=== PATIENT | female | born 1970 | race Two or more races ===

== ENCOUNTER 2017-02-20 09:10 | Emergency (ER) | payer OTHER ==
[~2017-02-20] VITALS: Ht 160 cm; Wt 110.9 kg
[2017-02-20] MEDS ORDERED: MULT1CHW39 PO (09:24)
[2017-02-20] MEDS ORDERED: DEXT30SUSP PO (09:24)
[2017-02-20] MEDS ORDERED: LORazepam 2 MG/ML VIAL (J2060) IV STA (09:32)
[2017-02-20 10:06] LABS: BASO % 0.3 % (0.0-1.0); EOS # 0.1 K/mm3 (0.0-0.50); EOS % 0.6 % (0.0-3.0); LARGE UNSTAINED CELL # 0.2 K/mm3 (0.0-0.4); LARGE UNSTAINED CELL % 2.2 % (0.0-4.0); LYMPH # 1.2 K/mm3 (1.5-4.5); LYMPH % 11.8 % (24.0-44.0); MEAN CORPUSCULAR HEMOGLOBIN 20.9 pg (27.0-33.0); MEAN CORPUSCULAR HGB CONC 31.3 g/dl (32.0-36.5); MONO # 0.5 K/mm3 (0.0-0.8); MONO % 4.8 % (0.0-5.0); NEUTROPHILS # 8.4 K/mm3 (1.8-7.7); NEUTROPHILS % 80.3 % (36.0-66.0); PLATELET COUNT, AUTOMATED 349 k/mm3 (150-450); RED CELL DISTRIBUTION WIDTH 16.8 % (11.5-14.5); WHITE BLOOD COUNT 10.5 K/mm3 (4.0-10.0)
[2017-02-20 10:13] LABS: INR 1.03
[2017-02-20 10:20] LABS: ADD MORPHOLOGY? YES
[2017-02-20 10:35] LABS: ALBUMIN 3.6 GM/DL (3.2-5.2); ALBUMIN/GLOBULIN RATIO 0.78 (1.00-1.93); ALKALINE PHOSPHATASE 104 U/L (45-117); ALT/SGPT 22 U/L (12-78); ANION GAP 10 MEQ/L (8-16); AST/SGOT 12 U/L (15-37); BILIRUBIN,DIRECT < 0.1 MG/DL (0.0-0.2); BILIRUBIN,TOTAL 0.6 MG/DL (0.2-1.0); BLOOD UREA NITROGEN 10 MG/DL (7-18); CALCIUM LEVEL 8.8 MG/DL (8.5-10.1); CARBON DIOXIDE LEVEL 21 MEQ/L (21-32); CHLORIDE LEVEL 105 MEQ/L (98-107); CREATININE FOR GFR 0.83 MG/DL (0.55-1.02); GLOMERULAR FILTRATION RATE > 60.0 (>58); GLUCOSE, FASTING 124 MG/DL (70-105); POTASSIUM SERUM 3.4 MEQ/L (3.5-5.1); SODIUM LEVEL 136 MEQ/L (136-145); TOTAL PROTEIN 8.2 GM/DL (6.4-8.2)
[2017-02-20 10:36] LABS: ANISOCYTOSIS 2+; MICROCYTOSIS 2+
[2017-02-20 10:37] LABS: HYPOCHROMASIA 1+
[2017-02-20] MEDS ORDERED: ISOVUE-370 76% 100ML VIAL (Q9967) As Ordered ONE (10:51)
[2017-02-20 11:41] VITALS: BP 155/86
--- NOTE | 2017-02-20 11:43 | REP ---
CT ANGIO CHEST: HISTORY: Chest pain. CONTRAST: Isovue 370, 75 mL. There are no filling defects in the main, right and left pulmonary arteries. There are no definite filling defects in the distal pulmonary arteries, however , they are not well seen. The lungs are clear. There is no pleural effusion. There is no mediastinal mass. The heart is normal in size. IMPRESSION: Limited examination with no definite pulmonary embolism. Signed by Humble Lara MD 02/20/2017 11:45 A
--- NOTE | 2017-02-20 16:50 | REP ---
Chest x-ray: Two views. History: Dyspnea and cough . Comparison study: No comparison . Findings: The lungs are well inflated and free of infiltrate. The pleural angles are sharp. The heart size is normal. Pulmonary vasculature is not increased. No significant bony abnormality is seen. Impression: Negative chest x-ray. Signed by Joni Prasad MD 02/20/2017 10:06 A
--- NOTE | 2017-02-20 21:50 | ECGEPIP ---
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
== END 2017-02-20 11:53 | disposition home or self-care (01) ==
LOC: M ED 09:10
DX: R06.02 Shortness of breath (principal); R07.89 Other chest pain; E66.9 Obesity, unspecified; Z88.5 Allergy status to narcotic agent
CPT/HCPCS: 71020; 71275; 80048; 80076; 82550; 82553; 83880; 85025; 85379; 85610; 93005; 93041; 96374; 99284; J2060; Q9967

== ENCOUNTER → 2017-03-04 | Outpatient (REF) | payer OTHER ==
[~2017-03-04] MED LIST: DEXT30SUSP PO; MULT1CHW39 PO
[2017-03-04 13:00] LABS: MEAN CORPUSCULAR HEMOGLOBIN 21.1 pg (27.0-33.0); MEAN CORPUSCULAR HGB CONC 30.4 g/dl (32.0-36.5); MEAN CORPUSCULAR VOLUME 69.3 fl (80.0-96.0); RED CELL DISTRIBUTION WIDTH 17.3 % (11.5-14.5); WHITE BLOOD COUNT 7.6 K/mm3 (4.0-10.0)
[2017-03-04 13:26] LABS: FREE T4 1.13 NG/DL (0.76-1.46)
== END ==
LOC: M SFHCLERA 09:05
PROVIDERS: ATTEND Family Medicine
DX: D64.9 Anemia, unspecified (principal); R06.83 Snoring; E66.9 Obesity, unspecified; R53.83 Other fatigue

== ENCOUNTER → 2017-05-17 | Outpatient (REF) | payer OTHER ==
[2017-05-17 11:57] LABS: MEAN CORPUSCULAR HEMOGLOBIN 26.5 pg (27.0-33.0); MEAN CORPUSCULAR HGB CONC 32.6 g/dl (32.0-36.5); MEAN CORPUSCULAR VOLUME 81.3 fl (80.0-96.0); RED CELL DISTRIBUTION WIDTH 18.1 % (11.5-14.5)
[2017-05-17 12:30] LABS: FERRITIN 28 NG/ML (8-252)
== END ==
LOC: M SFHCLERA 08:25
PROVIDERS: ATTEND Family Medicine
DX: Z79.899 Other long term (current) drug therapy (principal)

== ENCOUNTER 2021-08-31 18:26 | Inpatient (IN) | payer OTHER ==
[~2021-08-31] VITALS: Ht 160 cm; Wt 111.0 kg
[~2021-08-31 18:26] MED LIST changes: -MULT1CHW39 PO; +MULT200T7 PO
[2021-08-31] MEDS ORDERED: FERR325T81 PO (18:37)
[2021-08-31 22:06] LABS: BASO % 0.2 % (0.0-1.0); EOS % 0.2 % (0.0-3.0); HEMATOCRIT 40.7 % (36.0-47.0); HEMOGLOBIN 12.8 g/dl (12.0-15.5); LYMPH # 0.9 10^3/uL (1.5-5.0); LYMPH % 4.8 % (24.0-44.0); MEAN CORPUSCULAR HEMOGLOBIN 22.8 pg (27.0-33.0); MEAN CORPUSCULAR HGB CONC 31.4 g/dl (32.0-36.5); MEAN CORPUSCULAR VOLUME 72.4 fl (80.0-96.0); MONO # 1.2 10^3/uL (0.0-0.8); MONO % 6.4 % (2.0-8.0); PLATELET COUNT, AUTOMATED 568 10^3/uL (150-450); RED BLOOD COUNT 5.62 10^6/uL (4.00-5.40); WHITE BLOOD COUNT 19.3 10^3/uL (4.0-10.0)
[2021-08-31 22:45] LABS: ALBUMIN 3.7 GM/DL (3.2-5.2); BILIRUBIN,DIRECT 0.1 MG/DL (0.0-0.2); BILIRUBIN,TOTAL 0.4 MG/DL (0.2-1.0); CALCIUM LEVEL 9.8 MG/DL (8.5-10.1); CREATININE FOR GFR 1.38 MG/DL (0.55-1.30); GLOMERULAR FILTRATION RATE 42.7 (>51); POTASSIUM SERUM 4.1 MEQ/L (3.5-5.1); TOTAL PROTEIN 8.2 GM/DL (6.4-8.2)
[2021-08-31] MEDS ORDERED: NS 1,000 ML IV ONE (23:10)
[2021-08-31] MEDS ORDERED: ISOVUE-370 76% 100ML VIAL As Ordered ONE (23:38)
[2021-09-01] MEDS ORDERED: CIPROFLOXACIN 400 MG in IV 1 EA IV ONE (00:35)
[2021-09-01] MEDS ORDERED: metroNIDAZOLE 500 MG in IV 1 EA IV ONE (00:35)
[2021-09-01] MEDS ORDERED: NS 1,000 ML IV ONE (01:00)
[2021-09-01] MEDS ORDERED: KETOROLAC 30 MG/ML 1ML VIAL IV PRN (01:05)
[2021-09-01] MEDS ORDERED: ONDANSETRON 4MG/2ML VIAL IV ONE (01:35)
[2021-09-01] MEDS ORDERED: MULTCHW12 PO (01:54)
[2021-09-01] MEDS ORDERED: HOME MED LIST COMPLETE! XX SCH (01:55)
[2021-09-01 04:08] VITALS: BP 157/85
[2021-09-01] MEDS: NS 1,000 ML IV SCH ×4 (04:36→19:37)
[2021-09-01 05:29] VITALS: BP 151/88
[2021-09-01] MEDS: metroNIDAZOLE 500 MG in IV 1 EA IV SCH ×3 (06:24→18:24)
[2021-09-01] MEDS: SENOKOT S TAB PO SCH ×2 (10:15→20:38)
[2021-09-01] MEDS: ENOXAPARIN 40MG/0.4ML SYRINGE (J1650 PER 10MG) SC SCH (10:16)
[2021-09-01] MEDS: PANTOPRAZOLE 40MG VIAL (C9113 PER 1) IV SCH (10:16)
[2021-09-01 12:46] LABS: HEMATOCRIT 35.5 % (36.0-47.0); MEAN CORPUSCULAR HEMOGLOBIN 22.5 pg (27.0-33.0); MEAN CORPUSCULAR HGB CONC 30.1 g/dl (32.0-36.5); MEAN CORPUSCULAR VOLUME 74.6 fl (80.0-96.0); RED BLOOD COUNT 4.76 10^6/uL (4.00-5.40); WHITE BLOOD COUNT 15.4 10^3/uL (4.0-10.0)
[2021-09-01 12:55] LABS: HEMOGLOBIN 10.7 g/dl (12.0-15.5); PLATELET COUNT, AUTOMATED 441 10^3/uL (150-450)
[2021-09-01 13:02] LABS: BLOOD UREA NITROGEN 31 MG/DL (7-18); CALCIUM LEVEL 8.8 MG/DL (8.5-10.1); CARBON DIOXIDE LEVEL 27 MEQ/L (21-32); CHLORIDE LEVEL 104 MEQ/L (98-107); CREATININE FOR GFR 1.01 MG/DL (0.55-1.30); GLOMERULAR FILTRATION RATE > 60.0 (>51); GLUCOSE, FASTING 122 MG/DL (70-100); POTASSIUM SERUM 3.2 MEQ/L (3.5-5.1); SODIUM LEVEL 137 MEQ/L (136-145)
[2021-09-01 14:00] VITALS: BP 158/92
[2021-09-01] MEDS: CIPROFLOXACIN 400 MG in IV 1 EA IV SCH (16:28)
[2021-09-01 22:00] VITALS: BP 155/83
[2021-09-02] MEDS: metroNIDAZOLE 500 MG in IV 1 EA IV SCH ×5 (00:45→23:29)
[2021-09-02] MEDS: NS 1,000 ML IV SCH ×3 (02:17→17:12)
[2021-09-02] MEDS: CIPROFLOXACIN 400 MG in IV 1 EA IV SCH ×2 (03:53→15:38)
[2021-09-02 06:22] VITALS: BP 150/82
[2021-09-02 07:33] LABS: HEMATOCRIT 32.5 % (36.0-47.0); HEMOGLOBIN 9.9 g/dl (12.0-15.5); MEAN CORPUSCULAR HEMOGLOBIN 22.6 pg (27.0-33.0); MEAN CORPUSCULAR HGB CONC 30.5 g/dl (32.0-36.5); PLATELET COUNT, AUTOMATED 352 10^3/uL (150-450); RED BLOOD COUNT 4.39 10^6/uL (4.00-5.40); WHITE BLOOD COUNT 8.1 10^3/uL (4.0-10.0)
[2021-09-02 07:53] LABS: BLOOD UREA NITROGEN 21 MG/DL (7-18); CARBON DIOXIDE LEVEL 28 MEQ/L (21-32); CHLORIDE LEVEL 106 MEQ/L (98-107); CREATININE FOR GFR 0.82 MG/DL (0.55-1.30); GLOMERULAR FILTRATION RATE > 60.0 (>51); GLUCOSE, FASTING 110 MG/DL (70-100); POTASSIUM SERUM 3.2 MEQ/L (3.5-5.1); SODIUM LEVEL 138 MEQ/L (136-145)
[2021-09-02] MEDS: SENOKOT S TAB PO SCH ×2 (09:48→20:37)
[2021-09-02] MEDS: PANTOPRAZOLE 40MG VIAL (C9113 PER 1) IV SCH (09:49)
[2021-09-02] MEDS: ENOXAPARIN 40MG/0.4ML SYRINGE (J1650 PER 10MG) SC SCH (09:49)
[2021-09-02 14:00] VITALS: BP 180/93
[2021-09-02] MEDS: ONDANSETRON 4MG/2ML VIAL IV PRN (15:38)
[2021-09-02] MEDS: POTASSIUM CHLORIDE INJ 40 MEQ in LR 1,000 ML IV SCH (21:46)
[2021-09-02 22:00] VITALS: BP 160/90
[2021-09-03] MEDS: CIPROFLOXACIN 400 MG in IV 1 EA IV SCH ×2 (03:59→16:56)
[2021-09-03] MEDS: metroNIDAZOLE 500 MG in IV 1 EA IV SCH ×3 (05:07→16:55)
[2021-09-03 06:00] VITALS: BP 168/93
[2021-09-03 08:13] LABS: HEMATOCRIT 33.3 % (36.0-47.0); MEAN CORPUSCULAR HEMOGLOBIN 22.3 pg (27.0-33.0); MEAN CORPUSCULAR VOLUME 74.2 fl (80.0-96.0); PLATELET COUNT, AUTOMATED 366 10^3/uL (150-450); RED BLOOD COUNT 4.49 10^6/uL (4.00-5.40); WHITE BLOOD COUNT 8.2 10^3/uL (4.0-10.0)
[2021-09-03 08:42] LABS: BLOOD UREA NITROGEN 14 MG/DL (7-18); CREATININE FOR GFR 0.69 MG/DL (0.55-1.30); GLUCOSE, FASTING 118 MG/DL (70-100)
[2021-09-03 08:43] LABS: CALCIUM LEVEL 8.4 MG/DL (8.5-10.1); CARBON DIOXIDE LEVEL 25 MEQ/L (21-32); CHLORIDE LEVEL 108 MEQ/L (98-107); GLOMERULAR FILTRATION RATE > 60.0 (>51); POTASSIUM SERUM 3.3 MEQ/L (3.5-5.1); SODIUM LEVEL 138 MEQ/L (136-145)
[2021-09-03] MEDS: SENOKOT S TAB PO SCH (09:13)
[2021-09-03] MEDS: PANTOPRAZOLE 40MG VIAL (C9113 PER 1) IV SCH (09:13)
[2021-09-03] MEDS: ENOXAPARIN 40MG/0.4ML SYRINGE (J1650 PER 10MG) SC SCH (09:13)
[2021-09-03] MEDS: POTASSIUM CHLORIDE INJ 40 MEQ in LR 1,000 ML IV SCH (09:13)
[2021-09-03 14:46] VITALS: BP 168/92
[2021-09-03] MEDS ORDERED: FAT EMULSION IV 20% 500 ML IV SCH (18:00)
[2021-09-03] MEDS: AMINO AC/ELECTROLYTE/DEX/CALC 1,000 ML IV SCH (19:36)
[2021-09-03 22:00] VITALS: BP 172/89
[2021-09-04] MEDS: metroNIDAZOLE 500 MG in IV 1 EA IV SCH ×5 (00:24→23:26)
[2021-09-04] MEDS: CIPROFLOXACIN 400 MG in IV 1 EA IV SCH ×2 (04:00→16:27)
[2021-09-04] MEDS: AMINO AC/ELECTROLYTE/DEX/CALC 1,000 ML IV SCH ×3 (04:05→17:22)
[2021-09-04 06:00] VITALS: BP 171/89
[2021-09-04 07:11] LABS: BASO # 0.1 10^3/uL (0.0-0.2); BASO % 0.6 % (0.0-1.0); EOS % 0.5 % (0.0-3.0); HEMOGLOBIN 10.3 g/dl (12.0-15.5); LYMPH # 0.8 10^3/uL (1.5-5.0); LYMPH % 9.6 % (24.0-44.0); MEAN CORPUSCULAR HEMOGLOBIN 22.3 pg (27.0-33.0); MEAN CORPUSCULAR HGB CONC 30.3 g/dl (32.0-36.5); MEAN CORPUSCULAR VOLUME 73.8 fl (80.0-96.0); MONO # 0.8 10^3/uL (0.0-0.8); NEUTROPHILS # 6.3 10^3/uL (1.5-8.5); PLATELET COUNT, AUTOMATED 365 10^3/uL (150-450); RED BLOOD COUNT 4.61 10^6/uL (4.00-5.40)
[2021-09-04 07:45] LABS: ALBUMIN 3.1 GM/DL (3.2-5.2); ALT/SGPT 23 U/L (12-78); BILIRUBIN,TOTAL 0.2 MG/DL (0.2-1.0); BLOOD UREA NITROGEN 10 MG/DL (7-18); CALCIUM LEVEL 8.6 MG/DL (8.5-10.1); CARBON DIOXIDE LEVEL 28 MEQ/L (21-32); CHLORIDE LEVEL 103 MEQ/L (98-107); CREATININE FOR GFR 0.63 MG/DL (0.55-1.30); GLOMERULAR FILTRATION RATE > 60.0 (>51); GLUCOSE, FASTING 134 MG/DL (70-100); POTASSIUM SERUM 3.2 MEQ/L (3.5-5.1); SODIUM LEVEL 137 MEQ/L (136-145); TOTAL PROTEIN 6.7 GM/DL (6.4-8.2)
[2021-09-04] MEDS: ENOXAPARIN 40MG/0.4ML SYRINGE (J1650 PER 10MG) SC SCH (07:52)
[2021-09-04] MEDS: PANTOPRAZOLE 40MG VIAL (C9113 PER 1) IV SCH (07:52)
[2021-09-04] MEDS ORDERED: LIQUID POLIBAR PLUS 105% w/v 750ML BTL As Ordered ONE (13:34)
[2021-09-04 14:00] VITALS: BP 168/90
[2021-09-04] MEDS ORDERED: FAT EMULSION IV 20% 500 ML IV SCH (18:00)
[2021-09-04 21:18] VITALS: BP 164/88
[2021-09-05] MEDS: CIPROFLOXACIN 400 MG in IV 1 EA IV SCH ×2 (04:47→16:05)
[2021-09-05 06:00] VITALS: BP 156/86
[2021-09-05] MEDS: metroNIDAZOLE 500 MG in IV 1 EA IV SCH ×4 (06:00→23:39)
[2021-09-05 06:24] LABS: HEMATOCRIT 32.3 % (36.0-47.0); HEMOGLOBIN 10.1 g/dl (12.0-15.5); MEAN CORPUSCULAR HEMOGLOBIN 22.6 pg (27.0-33.0); MEAN CORPUSCULAR HGB CONC 31.3 g/dl (32.0-36.5); MEAN CORPUSCULAR VOLUME 72.4 fl (80.0-96.0); PLATELET COUNT, AUTOMATED 332 10^3/uL (150-450); RED BLOOD COUNT 4.46 10^6/uL (4.00-5.40); WHITE BLOOD COUNT 7.3 10^3/uL (4.0-10.0)
[2021-09-05] MEDS: AMINO AC/ELECTROLYTE/DEX/CALC 1,000 ML IV SCH ×2 (06:50→20:54)
[2021-09-05 06:58] LABS: BLOOD UREA NITROGEN 9 MG/DL (7-18); CREATININE FOR GFR 0.63 MG/DL (0.55-1.30); GLUCOSE, FASTING 159 MG/DL (70-100)
[2021-09-05 06:59] LABS: CALCIUM LEVEL 8.4 MG/DL (8.5-10.1); CARBON DIOXIDE LEVEL 26 MEQ/L (21-32); CHLORIDE LEVEL 102 MEQ/L (98-107); GLOMERULAR FILTRATION RATE > 60.0 (>51); SODIUM LEVEL 136 MEQ/L (136-145)
[2021-09-05] MEDS: ENOXAPARIN 40MG/0.4ML SYRINGE (J1650 PER 10MG) SC SCH (09:27)
[2021-09-05] MEDS: PANTOPRAZOLE 40MG VIAL (C9113 PER 1) IV SCH (09:27)
[2021-09-05] MEDS: KCL 10MEQ/100ML SWI (KRUN) 10 MEQ in IV 1 EA IV SCH ×4 (09:28→15:07)
[2021-09-05] MEDS ORDERED: MAGNESIUM CITRATE 300 ML BTL PO ONE (12:25)
[2021-09-05 13:25] VITALS: BP 154/88
[2021-09-05] MEDS ORDERED: FAT EMULSION IV 20% 500 ML IV SCH (18:00)
[2021-09-05 22:00] VITALS: BP 149/91
[2021-09-06] MEDS: CIPROFLOXACIN 400 MG in IV 1 EA IV SCH ×2 (03:43→17:06)
[2021-09-06] MEDS: metroNIDAZOLE 500 MG in IV 1 EA IV SCH ×3 (05:10→17:55)
[2021-09-06 05:17] LABS: HEMOGLOBIN 11.2 g/dl (12.0-15.5); MEAN CORPUSCULAR HEMOGLOBIN 22.8 pg (27.0-33.0); MEAN CORPUSCULAR HGB CONC 31.1 g/dl (32.0-36.5); MEAN CORPUSCULAR VOLUME 73.2 fl (80.0-96.0); PLATELET COUNT, AUTOMATED 380 10^3/uL (150-450); RED BLOOD COUNT 4.92 10^6/uL (4.00-5.40); WHITE BLOOD COUNT 8.2 10^3/uL (4.0-10.0)
[2021-09-06 05:53] LABS: BLOOD UREA NITROGEN 11 MG/DL (7-18); CALCIUM LEVEL 8.5 MG/DL (8.5-10.1); CARBON DIOXIDE LEVEL 26 MEQ/L (21-32); CHLORIDE LEVEL 102 MEQ/L (98-107); CREATININE FOR GFR 0.78 MG/DL (0.55-1.30); GLOMERULAR FILTRATION RATE > 60.0 (>51); GLUCOSE, FASTING 157 MG/DL (70-100); SODIUM LEVEL 136 MEQ/L (136-145)
[2021-09-06 06:00] VITALS: BP 146/90
[2021-09-06] MEDS ORDERED: MAGNESIUM CITRATE 300 ML BTL PO ONE (07:50)
[2021-09-06] MEDS: PANTOPRAZOLE 40MG VIAL (C9113 PER 1) IV SCH (09:17)
[2021-09-06] MEDS: ENOXAPARIN 40MG/0.4ML SYRINGE (J1650 PER 10MG) SC SCH (09:17)
[2021-09-06] MEDS: KCL 10MEQ/100ML SWI (KRUN) 10 MEQ in IV 1 EA IV SCH ×5 (09:17→13:56)
[2021-09-06] MEDS: AMINO AC/ELECTROLYTE/DEX/CALC 1,000 ML IV SCH ×2 (09:33→21:53)
[2021-09-06 14:00] VITALS: BP 151/84
[2021-09-06] MEDS: HumaLOG INSULIN (NovoLOG) PER UNIT SC SCH (17:54)
[2021-09-06] MEDS ORDERED: FAT EMULSION IV 20% 500 ML IV SCH (18:00)
[2021-09-06 22:00] VITALS: BP 150/84
[2021-09-07] VITALS (7 sets, daily range): BP systolic 90–150; BP diastolic 72–90
[2021-09-07] MEDS: metroNIDAZOLE 500 MG in IV 1 EA IV SCH ×6 (00:17→23:24)
[2021-09-07] MEDS: CIPROFLOXACIN 400 MG in IV 1 EA IV SCH ×2 (03:12→16:25)
[2021-09-07 04:19] LABS: RSV AMPLIFICATION NEGATIVE (NEGATIVE)
[2021-09-07 04:35] LABS: HEMATOCRIT 32.8 % (36.0-47.0); MEAN CORPUSCULAR HEMOGLOBIN 22.1 pg (27.0-33.0); MEAN CORPUSCULAR HGB CONC 30.5 g/dl (32.0-36.5); MEAN CORPUSCULAR VOLUME 72.6 fl (80.0-96.0); PLATELET COUNT, AUTOMATED 357 10^3/uL (150-450); RED BLOOD COUNT 4.52 10^6/uL (4.00-5.40); WHITE BLOOD COUNT 7.8 10^3/uL (4.0-10.0)
[2021-09-07 04:55] LABS: BLOOD UREA NITROGEN 10 MG/DL (7-18); CARBON DIOXIDE LEVEL 28 MEQ/L (21-32); CHLORIDE LEVEL 105 MEQ/L (98-107); CREATININE FOR GFR 0.62 MG/DL (0.55-1.30); GLOMERULAR FILTRATION RATE > 60.0 (>51); GLUCOSE, FASTING 132 MG/DL (70-100); SODIUM LEVEL 138 MEQ/L (136-145)
[2021-09-07] MEDS: HumaLOG INSULIN (NovoLOG) PER UNIT SC SCH ×5 (05:30→23:29)
[2021-09-07] MEDS: ENOXAPARIN 40MG/0.4ML SYRINGE (J1650 PER 10MG) SC SCH (07:42)
[2021-09-07] MEDS: PANTOPRAZOLE 40MG VIAL (C9113 PER 1) IV SCH (07:42)
[2021-09-07] MEDS: KCL 10MEQ/100ML SWI (KRUN) 10 MEQ in IV 1 EA IV SCH ×8 (08:46→21:48)
[2021-09-07] MEDS: SENOKOT S TAB PO SCH ×2 (09:00→21:07)
[2021-09-07] MEDS ORDERED: BUPIVACAINE/EPIN 0.5% 30 ML VIAL As Ordered ONE (09:38)
[2021-09-07] MEDS ORDERED: ONDANSETRON 4MG/2ML VIAL As Ordered ONE (09:47)
[2021-09-07] MEDS ORDERED: LIDOCAINE 2% 100MG/5ML SDV (FOR ANES.) As Ordered ONE (09:47)
[2021-09-07] MEDS ORDERED: HYDROmorphone HCL 2MG/ML 1ML VIAL As Ordered ONE (09:47)
[2021-09-07] MEDS ORDERED: dexameTHASONE 4 MG/ML 1ML VIAL (J1100 PER 1MG) As Ordered ONE (09:47)
[2021-09-07] MEDS ORDERED: ROCURONIUM BROMIDE 50 MG/5 ML VIAL As Ordered ONE ×3 (09:47→12:06)
[2021-09-07] MEDS ORDERED: fentaNYL 100 MCG/2 ML INJECTION As Ordered ONE (09:47)
[2021-09-07] MEDS ORDERED: MIDAZOLAM INJ 2MG/2ML VIAL (J2250 PER 1MG) As Ordered ONE (09:47)
[2021-09-07] MEDS ORDERED: propofoL 200 MG/20 ML VIAL As Ordered ONE ×2 (09:49→13:48)
[2021-09-07] MEDS ORDERED: ACETAMINOPHEN 1000MG 100ML IV BTL (OFIRMEV) (J0131 PER 10MG) As Ordered ONE (10:51)
[2021-09-07] MEDS ORDERED: PHENYLephrine 500MCG 5ML (100MCG/ML) SYRINGE As Ordered ONE (10:53)
[2021-09-07] MEDS ORDERED: ePHEDrine SULFATE 25 MG/5 ML(5MG/ML) SYRINGE As Ordered ONE (10:58)
[2021-09-07] MEDS ORDERED: SUGAMMADEX SODIUM 500 MG/5 ML VIAL (BRIDION) As Ordered ONE (12:06)
[2021-09-07] MEDS ORDERED: KETOROLAC 60MG 2ML VIAL As Ordered ONE (13:28)
[2021-09-07] MEDS ORDERED: LR 1,000 ML IV SCH (14:30)
[2021-09-07] MEDS ORDERED: ONDANSETRON 4MG/2ML VIAL IV PRN (14:30)
[2021-09-07] MEDS ORDERED: MORPHINE 2 MG/ML 1ML VIAL (J2270) IV PRN (14:30)
[2021-09-07] MEDS: ONDANSETRON 4MG/2ML VIAL IV PRN (14:40)
[2021-09-07] MEDS: fentaNYL 100 MCG/2 ML INJECTION IV PRN ×4 (14:41→14:59)
[2021-09-07] MEDS: AMINO AC/ELECTROLYTE/DEX/CALC 1,000 ML IV SCH ×2 (16:23→23:11)
[2021-09-07] MEDS ORDERED: FAT EMULSION IV 20% 500 ML IV SCH (18:00)
[2021-09-07] MEDS: MORPHINE 2 MG/ML 1ML VIAL (J2270) IV PRN ×2 (18:47→23:23)
[2021-09-08 02:00] VITALS: BP 118/64
[2021-09-08] MEDS: CIPROFLOXACIN 400 MG in IV 1 EA IV SCH ×2 (03:37→15:12)
[2021-09-08] MEDS: MORPHINE 2 MG/ML 1ML VIAL (J2270) IV PRN ×5 (03:38→21:46)
[2021-09-08] MEDS: metroNIDAZOLE 500 MG in IV 1 EA IV SCH ×4 (04:59→23:25)
[2021-09-08] MEDS: HumaLOG INSULIN (NovoLOG) PER UNIT SC SCH ×2 (06:19→11:29)
[2021-09-08 06:20] VITALS: BP 139/83
[2021-09-08] MEDS: SENOKOT S TAB PO SCH ×2 (08:35→21:45)
[2021-09-08] MEDS: ENOXAPARIN 40MG/0.4ML SYRINGE (J1650 PER 10MG) SC SCH (08:35)
[2021-09-08] MEDS: PANTOPRAZOLE 40MG VIAL (C9113 PER 1) IV SCH (08:35)
[2021-09-08 10:12] LABS: HEMATOCRIT 31.4 % (36.0-47.0); HEMOGLOBIN 9.5 g/dl (12.0-15.5); MEAN CORPUSCULAR HEMOGLOBIN 22.1 pg (27.0-33.0); MEAN CORPUSCULAR HGB CONC 30.3 g/dl (32.0-36.5); MEAN CORPUSCULAR VOLUME 73.2 fl (80.0-96.0); PLATELET COUNT, AUTOMATED 307 10^3/uL (150-450); RED BLOOD COUNT 4.29 10^6/uL (4.00-5.40); WHITE BLOOD COUNT 9.2 10^3/uL (4.0-10.0)
[2021-09-08 10:41] LABS: BLOOD UREA NITROGEN 5 MG/DL (7-18); CALCIUM LEVEL 7.7 MG/DL (8.5-10.1); CARBON DIOXIDE LEVEL 25 MEQ/L (21-32); CHLORIDE LEVEL 107 MEQ/L (98-107); CREATININE FOR GFR 0.51 MG/DL (0.55-1.30); GLOMERULAR FILTRATION RATE > 60.0 (>51); GLUCOSE, FASTING 142 MG/DL (70-100); POTASSIUM SERUM 3.4 MEQ/L (3.5-5.1); SODIUM LEVEL 138 MEQ/L (136-145)
[2021-09-08] MEDS: AMINO AC/ELECTROLYTE/DEX/CALC 1,000 ML IV SCH (11:29)
[2021-09-08 14:00] VITALS: BP 128/78
[2021-09-08 22:00] VITALS: BP 141/84
[2021-09-09] MEDS: CIPROFLOXACIN 400 MG in IV 1 EA IV SCH ×2 (03:56→16:10)
[2021-09-09] MEDS: metroNIDAZOLE 500 MG in IV 1 EA IV SCH ×4 (05:58→23:30)
[2021-09-09 06:00] VITALS: BP 141/85
[2021-09-09] MEDS: KETOROLAC 30 MG/ML 1ML VIAL IV SCH ×4 (06:00→23:29)
[2021-09-09 06:45] LABS: HEMOGLOBIN 9.8 g/dl (12.0-15.5); MEAN CORPUSCULAR HEMOGLOBIN 22.3 pg (27.0-33.0); MEAN CORPUSCULAR HGB CONC 30.6 g/dl (32.0-36.5); MEAN CORPUSCULAR VOLUME 72.9 fl (80.0-96.0); PLATELET COUNT, AUTOMATED 305 10^3/uL (150-450); RED BLOOD COUNT 4.39 10^6/uL (4.00-5.40); WHITE BLOOD COUNT 9.5 10^3/uL (4.0-10.0)
[2021-09-09 06:52] LABS: BLOOD UREA NITROGEN 5 MG/DL (7-18); CARBON DIOXIDE LEVEL 26 MEQ/L (21-32); CHLORIDE LEVEL 105 MEQ/L (98-107); CREATININE FOR GFR 0.57 MG/DL (0.55-1.30); GLOMERULAR FILTRATION RATE > 60.0 (>51); GLUCOSE, FASTING 152 MG/DL (70-100); POTASSIUM SERUM 3.5 MEQ/L (3.5-5.1); SODIUM LEVEL 138 MEQ/L (136-145)
[2021-09-09] MEDS: ENOXAPARIN 40MG/0.4ML SYRINGE (J1650 PER 10MG) SC SCH (08:27)
[2021-09-09] MEDS: SENOKOT S TAB PO SCH ×2 (08:27→21:00)
[2021-09-09] MEDS: MORPHINE 2 MG/ML 1ML VIAL (J2270) IV PRN (08:28)
[2021-09-09] MEDS: PANTOPRAZOLE 40MG VIAL (C9113 PER 1) IV SCH (08:28)
[2021-09-09] MEDS ORDERED: PERCOCET 5MG/325MG TAB PO PRN (09:10)
[2021-09-09 14:00] VITALS: BP 138/85
[2021-09-09 20:00] VITALS: BP 145/86
[2021-09-09] MEDS: PERCOCET 5MG/325MG TAB PO PRN (21:10)
[2021-09-10] MEDS: CIPROFLOXACIN 400 MG in IV 1 EA IV SCH ×2 (03:04→16:22)
[2021-09-10] MEDS: KETOROLAC 30 MG/ML 1ML VIAL IV SCH ×4 (05:15→23:46)
[2021-09-10] MEDS: metroNIDAZOLE 500 MG in IV 1 EA IV SCH ×4 (05:16→23:46)
[2021-09-10 06:00] VITALS: BP 114/78
[2021-09-10 06:15] LABS: HEMATOCRIT 36.2 % (36.0-47.0); HEMOGLOBIN 10.9 g/dl (12.0-15.5); MEAN CORPUSCULAR HEMOGLOBIN 21.8 pg (27.0-33.0); MEAN CORPUSCULAR HGB CONC 30.1 g/dl (32.0-36.5); MEAN CORPUSCULAR VOLUME 72.3 fl (80.0-96.0); PLATELET COUNT, AUTOMATED 342 10^3/uL (150-450); RED BLOOD COUNT 5.01 10^6/uL (4.00-5.40); WHITE BLOOD COUNT 12.4 10^3/uL (4.0-10.0)
[2021-09-10 06:42] LABS: CALCIUM LEVEL 8.4 MG/DL (8.5-10.1); CREATININE FOR GFR 1.1 MG/DL (0.55-1.30); GLOMERULAR FILTRATION RATE 55.5 (>51); POTASSIUM SERUM 3.3 MEQ/L (3.5-5.1)
[2021-09-10] MEDS: ENOXAPARIN 40MG/0.4ML SYRINGE (J1650 PER 10MG) SC SCH (08:49)
[2021-09-10] MEDS: PANTOPRAZOLE 40MG VIAL (C9113 PER 1) IV SCH (08:49)
[2021-09-10] MEDS: SENOKOT S TAB PO SCH ×2 (08:50→20:19)
[2021-09-10] MEDS ORDERED: KCL 10MEQ/100ML SWI (KRUN) 10 MEQ in IV 1 EA IV ONE (11:00)
[2021-09-10] MEDS: ALVIMOPAN 12 MG CAPSULE (ENTEREG) PO SCH ×2 (11:49→20:20)
[2021-09-10] MEDS: SIMETHICONE 80MG CHEW TAB PO SCH ×4 (11:51→20:20)
[2021-09-10 14:00] VITALS: BP 132/86
[2021-09-10] MEDS: ONDANSETRON 4MG/2ML VIAL IV PRN (17:10)
[2021-09-10] MEDS ORDERED: NS 1,000 ML IV SCH (17:20)
[2021-09-10] MEDS: NS 1,000 ML IV SCH ×2 (17:41→23:46)
[2021-09-10 21:47] VITALS: BP 112/74
[2021-09-11] MEDS: CIPROFLOXACIN 400 MG in IV 1 EA IV SCH ×2 (03:04→16:43)
[2021-09-11] MEDS: KETOROLAC 30 MG/ML 1ML VIAL IV SCH ×4 (05:29→23:37)
[2021-09-11] MEDS: metroNIDAZOLE 500 MG in IV 1 EA IV SCH ×4 (05:30→23:37)
[2021-09-11 06:00] VITALS: BP 111/76
[2021-09-11 08:48] LABS: HEMATOCRIT 32.8 % (36.0-47.0); HEMOGLOBIN 10.2 g/dl (12.0-15.5); MEAN CORPUSCULAR HEMOGLOBIN 22.2 pg (27.0-33.0); MEAN CORPUSCULAR HGB CONC 31.1 g/dl (32.0-36.5); MEAN CORPUSCULAR VOLUME 71.3 fl (80.0-96.0); PLATELET COUNT, AUTOMATED 394 10^3/uL (150-450); WHITE BLOOD COUNT 13.8 10^3/uL (4.0-10.0)
[2021-09-11] MEDS: ENOXAPARIN 40MG/0.4ML SYRINGE (J1650 PER 10MG) SC SCH (08:50)
[2021-09-11] MEDS: PANTOPRAZOLE 40MG VIAL (C9113 PER 1) IV SCH (08:51)
[2021-09-11] MEDS: SIMETHICONE 80MG CHEW TAB PO SCH ×4 (08:51→21:15)
[2021-09-11] MEDS: SENOKOT S TAB PO SCH ×2 (08:51→21:15)
[2021-09-11] MEDS: ALVIMOPAN 12 MG CAPSULE (ENTEREG) PO SCH ×2 (08:51→21:15)
[2021-09-11 09:14] LABS: CALCIUM LEVEL 8.4 MG/DL (8.5-10.1); CREATININE FOR GFR 1.24 MG/DL (0.55-1.30); GLOMERULAR FILTRATION RATE 48.4 (>51); POTASSIUM SERUM 3.4 MEQ/L (3.5-5.1)
[2021-09-11] MEDS: NS 1,000 ML IV SCH ×3 (10:13→21:16)
[2021-09-11 14:00] VITALS: BP 127/80
[2021-09-11 20:21] VITALS: BP 134/77
[2021-09-12] MEDS: NS 1,000 ML IV SCH ×5 (03:25→22:22)
[2021-09-12] MEDS: CIPROFLOXACIN 400 MG in IV 1 EA IV SCH (03:25)
[2021-09-12 05:15] VITALS: BP 135/74
[2021-09-12] MEDS: KETOROLAC 30 MG/ML 1ML VIAL IV SCH ×4 (05:18→23:02)
[2021-09-12] MEDS: metroNIDAZOLE 500 MG in IV 1 EA IV SCH (05:18)
[2021-09-12 06:49] LABS: HEMOGLOBIN 9.8 g/dl (12.0-15.5); MEAN CORPUSCULAR HEMOGLOBIN 22.1 pg (27.0-33.0); MEAN CORPUSCULAR HGB CONC 30.6 g/dl (32.0-36.5); MEAN CORPUSCULAR VOLUME 72.1 fl (80.0-96.0); PLATELET COUNT, AUTOMATED 366 10^3/uL (150-450); RED BLOOD COUNT 4.44 10^6/uL (4.00-5.40); WHITE BLOOD COUNT 11.7 10^3/uL (4.0-10.0)
[2021-09-12 07:23] LABS: BLOOD UREA NITROGEN 36 MG/DL (7-18); CALCIUM LEVEL 8.2 MG/DL (8.5-10.1); CARBON DIOXIDE LEVEL 23 MEQ/L (21-32); CHLORIDE LEVEL 109 MEQ/L (98-107); CREATININE FOR GFR 0.94 MG/DL (0.55-1.30); GLOMERULAR FILTRATION RATE > 60.0 (>51); GLUCOSE, FASTING 124 MG/DL (70-100); SODIUM LEVEL 138 MEQ/L (136-145)
[2021-09-12] MEDS: SENOKOT S TAB PO SCH ×2 (08:48→21:07)
[2021-09-12] MEDS: ALVIMOPAN 12 MG CAPSULE (ENTEREG) PO SCH ×2 (08:49→21:07)
[2021-09-12] MEDS: PANTOPRAZOLE 40MG VIAL (C9113 PER 1) IV SCH (08:49)
[2021-09-12] MEDS: ENOXAPARIN 40MG/0.4ML SYRINGE (J1650 PER 10MG) SC SCH (08:49)
[2021-09-12] MEDS: SIMETHICONE 80MG CHEW TAB PO SCH ×4 (08:49→21:07)
[2021-09-12] MEDS: POTASSIUM CHLORIDE 10MEQ SR TABLET PO SCH (08:51)
[2021-09-12 12:00] VITALS: BP 145/65
[2021-09-12] MEDS: PERCOCET 5MG/325MG TAB PO PRN ×2 (16:20→22:23)
[2021-09-12 22:00] VITALS: BP 137/76
[2021-09-13 06:00] VITALS: BP 140/80
[2021-09-13] MEDS: KETOROLAC 30 MG/ML 1ML VIAL IV SCH (06:00)
[2021-09-13 06:10] LABS: HEMATOCRIT 33.7 % (36.0-47.0); HEMOGLOBIN 10.1 g/dl (12.0-15.5); MEAN CORPUSCULAR HEMOGLOBIN 21.9 pg (27.0-33.0); MEAN CORPUSCULAR VOLUME 73.1 fl (80.0-96.0); PLATELET COUNT, AUTOMATED 403 10^3/uL (150-450); RED BLOOD COUNT 4.61 10^6/uL (4.00-5.40); WHITE BLOOD COUNT 10.2 10^3/uL (4.0-10.0)
[2021-09-13 06:25] LABS: BLOOD UREA NITROGEN 21 MG/DL (7-18); CALCIUM LEVEL 8.2 MG/DL (8.5-10.1); CARBON DIOXIDE LEVEL 19 MEQ/L (21-32); CHLORIDE LEVEL 112 MEQ/L (98-107); CREATININE FOR GFR 0.62 MG/DL (0.55-1.30); GLOMERULAR FILTRATION RATE > 60.0 (>51); GLUCOSE, FASTING 128 MG/DL (70-100); POTASSIUM SERUM 3.5 MEQ/L (3.5-5.1); SODIUM LEVEL 138 MEQ/L (136-145)
[2021-09-13] MEDS: SIMETHICONE 80MG CHEW TAB PO SCH ×4 (08:56→20:35)
[2021-09-13] MEDS: ENOXAPARIN 40MG/0.4ML SYRINGE (J1650 PER 10MG) SC SCH (08:56)
[2021-09-13] MEDS: POTASSIUM CHLORIDE 10MEQ SR TABLET PO SCH (08:57)
[2021-09-13 14:00] VITALS: BP 150/86
[2021-09-13] MEDS ORDERED: IBUPROFEN 600MG TAB PO PRN (14:35)
[2021-09-13] MEDS ORDERED: PERCOCET PO (15:33)
[2021-09-13 20:38] VITALS: BP 125/81
[2021-09-13 20:58] LABS: AMORPHOUS SEDIMENT LARGE (NEGATIVE); APPEARANCE, URINE TURBID (CLEAR); BACTERIA, URINE AUTO NEGATIVE (NEGATIVE); BILIRUBIN, URINE AUTO NEGATIVE (NEGATIVE); BLOOD, URINE BLOOD NEGATIVE (NEGATIVE); COLOR, URINE YELLOW (YELLOW); GLUCOSE, URINE (UA) AUTO NEGATIVE (NEGATIVE); KETONE, URINE AUTO TRACE mg/dL (NEGATIVE); LEUKOCYTE ESTERASE, URINE AUTO 1+ (NEGATIVE); MUCUS, URINE LARGE (NEGATIVE); NITRITE, URINE AUTO NEGATIVE (NEGATIVE); PROTEIN, URINE AUTO 1+ mg/dL (NEGATIVE); RBC, URINE AUTO 0 /HPF (0-3); SPECIFIC GRAVITY URINE AUTO 1.027 (1.002-1.035); SQUAMOUS EPITHELIAL CELL UR AU 15 /HPF (0-6); UROBILINOGEN, URINE AUTO 0.2 mg/dL (0.0-2.0); WBC, URINE AUTO 5 /HPF (0-3)
[2021-09-13] MEDS ORDERED: PANTOPRAZOLE 40MG TAB (PROTONIX) PO SCH (21:00)
[2021-09-14 04:00] VITALS: BP 129/84
[2021-09-14] MEDS ORDERED: SUCRALFATE 1 GM TAB PO SCH (06:00)
[2021-09-14 06:56] LABS: HEMATOCRIT 33.6 % (36.0-47.0); HEMOGLOBIN 10.1 g/dl (12.0-15.5); MEAN CORPUSCULAR HEMOGLOBIN 21.7 pg (27.0-33.0); MEAN CORPUSCULAR HGB CONC 30.1 g/dl (32.0-36.5); MEAN CORPUSCULAR VOLUME 72.3 fl (80.0-96.0); PLATELET COUNT, AUTOMATED 390 10^3/uL (150-450); RED BLOOD COUNT 4.65 10^6/uL (4.00-5.40); WHITE BLOOD COUNT 10.2 10^3/uL (4.0-10.0)
[2021-09-14 07:25] LABS: BLOOD UREA NITROGEN 14 MG/DL (7-18); CALCIUM LEVEL 8.5 MG/DL (8.5-10.1); CARBON DIOXIDE LEVEL 22 MEQ/L (21-32); CHLORIDE LEVEL 109 MEQ/L (98-107); CREATININE FOR GFR 0.57 MG/DL (0.55-1.30); GLOMERULAR FILTRATION RATE > 60.0 (>51); GLUCOSE, FASTING 123 MG/DL (70-100); POTASSIUM SERUM 3.5 MEQ/L (3.5-5.1); SODIUM LEVEL 136 MEQ/L (136-145)
[2021-09-14] MEDS ORDERED: OMEP40CA4 PO (08:42)
[2021-09-14] MEDS: POTASSIUM CHLORIDE 10MEQ SR TABLET PO SCH (08:43)
[2021-09-14] MEDS: ENOXAPARIN 40MG/0.4ML SYRINGE (J1650 PER 10MG) SC SCH (08:43)
[2021-09-14] MEDS: SIMETHICONE 80MG CHEW TAB PO SCH (08:43)
[2021-09-14] MEDS ORDERED: CARA1TAB6 PO (08:43)
[2021-09-14] MEDS ORDERED: OMEPRAZOLE 20MG CAP PO ONE (08:45)
== END 2021-09-14 10:50 | disposition home or self-care (01) | DRG 346 ==
LOC: M ED 18:26 → M ED INP 09-01 01:02 → ENRESERV 09-01 02:33 → M MS5PR 09-01 04:20
PROVIDERS: ADMIT Surgery; ATTEND Surgery
PROC: 8E0W0CZ Robotic Assisted Procedure of Trunk Region, Open Approach (ICD-10-PCS; 2021-09-07)
PROC: 0DBL0ZX Excision of Transverse Colon, Open Approach, Diagnostic (ICD-10-PCS; principal; 2021-09-07 10:30)
DX: C18.4 Malignant neoplasm of transverse colon (principal); K76.0 Fatty (change of) liver, not elsewhere classified; K80.20 Calculus of gallbladder without cholecystitis without obstruction; D25.9 Leiomyoma of uterus, unspecified; Z88.5 Allergy status to narcotic agent; Z20.822 Contact with and (suspected) exposure to COVID-19; E87.6 Hypokalemia; Z53.31 Laparoscopic surgical procedure converted to open procedure; Z90.49 Acquired absence of other specified parts of digestive tract

== ENCOUNTER → 2021-10-13 | Outpatient (REF) | payer OTHER ==
[~2021-10-13] MED LIST changes: +CARA1TAB6 PO; +FERR325T81 PO; +MULTCHW12 PO; +NAPR220C14 PO; +OMEP40CA4 PO; +PERCOCET PO
== END ==
LOC: M SFHCADAM 08:10
PROVIDERS: ATTEND Family Medicine
DX: R73.9 Hyperglycemia, unspecified (principal)

== ENCOUNTER → 2021-10-23 | Outpatient (REF) | payer OTHER | LOC: M SFHCADAM 08:16 | PROVIDERS: ATTEND Family Medicine | DX: R73.9 Hyperglycemia, unspecified (principal) ==

== ENCOUNTER → 2022-08-27 | Outpatient (CLI) | payer OTHER ==
[~2022-08-27] MED LIST changes: +GASTROGRAFIN SOLUTION 30ML As Ordered ONE; +ISOVUE-370 76% 100ML VIAL As Ordered ONE
== END ==
LOC: M RAD 11:09
PROVIDERS: ATTEND Specialist
DX: C18.9 Malignant neoplasm of colon, unspecified (principal)

== ENCOUNTER → 2022-10-01 | Outpatient (CLI) | payer OTHER ==
[~2022-10-01] MED LIST changes: -GASTROGRAFIN SOLUTION 30ML As Ordered ONE; -ISOVUE-370 76% 100ML VIAL As Ordered ONE
[2022-10-01 11:04] LABS: CHOLESTEROL RISK RATIO 3.16 (<5); HDL CHOLESTEROL 46.5 MG/DL (>40); LDL CHOLESTEROL 81.5 MG/DL (<100)
== END ==
LOC: M LAB 09:46
PROVIDERS: ATTEND Family Medicine
DX: Z00.00 Encounter for general adult medical examination without abnormal findings (principal)

== ENCOUNTER → 2023-08-21 | Outpatient (CLI) | payer OTHER ==
[~2023-08-21] MED LIST changes: +GASTROGRAFIN SOLUTION 30ML As Ordered ONE; +ISOVUE-370 76% 100ML VIAL As Ordered ONE
== END ==
LOC: M RAD 07:25
PROVIDERS: ATTEND Specialist
DX: C18.9 Malignant neoplasm of colon, unspecified (principal); K80.20 Calculus of gallbladder without cholecystitis without obstruction; K42.9 Umbilical hernia without obstruction or gangrene
CPT/HCPCS: 71260; 74177; Q9963; Q9967

== ENCOUNTER → 2023-09-03 | Outpatient (CLI) | payer OTHER ==
[~2023-09-03] MED LIST changes: -GASTROGRAFIN SOLUTION 30ML As Ordered ONE; -ISOVUE-370 76% 100ML VIAL As Ordered ONE
== END ==
LOC: M RAD 14:49
PROVIDERS: ATTEND Nurse Practitioner
DX: E04.1 Nontoxic single thyroid nodule (principal)

== ENCOUNTER → 2023-09-13 | Outpatient (REF) | payer OTHER ==
[2023-09-13 13:30] LABS: BASO # 0.1 10^3/uL (0.0-0.2); BASO % 0.8 % (0.0-1.0); EOS % 0.4 % (0.0-3.0); HEMATOCRIT 44.8 % (36.0-47.0); HEMOGLOBIN 14.3 g/dl (12.0-15.5); LYMPH # 1.2 10^3/uL (1.5-5.0); LYMPH % 14.3 % (24.0-44.0); MEAN CORPUSCULAR HGB CONC 31.9 g/dl (32.0-36.5); MEAN CORPUSCULAR VOLUME 78.3 fl (80.0-96.0); MONO # 0.6 10^3/uL (0.0-0.8); MONO % 6.8 % (2.0-8.0); NEUTROPHILS # 6.6 10^3/uL (1.5-8.5); NEUTROPHILS % 77.5 % (36.0-66.0); PLATELET COUNT, AUTOMATED 279 10^3/uL (150-450); RED BLOOD COUNT 5.72 10^6/uL (4.00-5.40); WHITE BLOOD COUNT 8.6 10^3/uL (4.0-10.0)
[2023-09-13 13:38] LABS: ERYTHROCYTE SEDIMENTATION RATE 48 mm/hr (0-30)
[2023-09-13 13:56] LABS: C REACTIVE PROTEIN QUANTITATIV < 0.40 MG/DL (<1.0)
[2023-09-13 13:57] LABS: THYROXINE (T4) 11.6 UG/DL (4.5-10.9)
[2023-09-13 13:58] LABS: ALBUMIN 3.9 G/DL (3.2-5.2); ALKALINE PHOSPHATASE 102 U/L (46-116); ALT/SGPT 36 U/L (7.0-40); AST/SGOT 21 U/L (<34); BILIRUBIN,TOTAL 0.4 MG/DL (0.3-1.2); BLOOD UREA NITROGEN 14 MG/DL (9-23); CALCIUM LEVEL 9.4 MG/DL (8.5-10.1); CARBON DIOXIDE LEVEL 28 MMOL/L (20-31); CHLORIDE LEVEL 102 MMOL/L (98-107); FREE T4 1.17 NG/DL (0.89-1.76); GLOMERULAR FILTRATION RATE > 60.0 (>51); GLUCOSE, FASTING 106 MG/DL (60-100); POTASSIUM SERUM 4.2 MMOL/L (3.5-5.1); SODIUM LEVEL 139 MMOL/L (136-145); THYROID STIMULATING HORMONE 1.209 uIU/ML (0.55-4.78); TOTAL PROTEIN 7.7 G/DL (5.7-8.2)
[2023-09-13 14:02] LABS: THYROID PEROXIDASE ANTIBODY 576 U/ML (<60.0)
== END ==
LOC: M SFHCADAM 11:10
PROVIDERS: ATTEND Physician Assistant
DX: R13.19 Other dysphagia (principal); R60.9 Edema, unspecified; E04.2 Nontoxic multinodular goiter

== ENCOUNTER → 2023-09-17 | Outpatient (CLI) | payer OTHER ==
[~2023-09-17] MED LIST changes: +ISOVUE-370 76% 100ML VIAL As Ordered ONE
== END ==
LOC: M RAD 10:27
PROVIDERS: ATTEND Family Medicine
DX: E04.2 Nontoxic multinodular goiter (principal)
CPT/HCPCS: 70491; Q9967

== ENCOUNTER → 2023-09-27 | Outpatient (CLI) | payer OTHER ==
[~2023-09-27] MED LIST changes: -ISOVUE-370 76% 100ML VIAL As Ordered ONE; +LIDOCAINE 1% MDV 20ML VIAL As Ordered ONE
[2023-09-27 12:05] VITALS: TEMP 97.1
[2023-09-27 12:52] VITALS: BP 191/89; O2SAT 97
== END ==
LOC: M IRPRO 11:56
PROVIDERS: ATTEND Nurse Practitioner
DX: E04.1 Nontoxic single thyroid nodule (principal)

== ENCOUNTER → 2023-10-30 | Outpatient (CLI) | payer OTHER ==
[~2023-10-30] MED LIST changes: -LIDOCAINE 1% MDV 20ML VIAL As Ordered ONE
== END ==
LOC: M LAB 13:07
PROVIDERS: ATTEND Surgery
DX: E07.9 Disorder of thyroid, unspecified (principal)

== ENCOUNTER 2024-02-19 14:09 | Emergency (ER) | payer OTHER ==
[~2024-02-19] VITALS: Ht 162.6 cm; Wt 114.2 kg
[~2024-02-19 14:09] MED LIST changes: +K-PHTAB4 PO
[2024-02-19 15:56] LABS: BASO % 0.2 % (0.0-1.0); HEMATOCRIT 44.5 % (36.0-47.0); HEMOGLOBIN 15.2 g/dl (12.0-15.5); LYMPH # 0.8 10^3/uL (1.5-5.0); LYMPH % 6.5 % (24.0-44.0); MEAN CORPUSCULAR HGB CONC 34.2 g/dl (32.0-36.5); MEAN CORPUSCULAR VOLUME 84.9 fl (80.0-96.0); MONO # 1.2 10^3/uL (0.0-0.8); NEUTROPHILS # 10.1 10^3/uL (1.5-8.5); NEUTROPHILS % 82.8 % (36.0-66.0); PLATELET COUNT, AUTOMATED 182 10^3/uL (150-450); RED BLOOD COUNT 5.24 10^6/uL (4.00-5.40); WHITE BLOOD COUNT 12.2 10^3/uL (4.0-10.0)
[2024-02-19 16:14] LABS: ERYTHROCYTE SEDIMENTATION RATE 51 mm/hr (0-30)
[2024-02-19 16:28] LABS: BLOOD UREA NITROGEN 12 MG/DL (9-23); CALCIUM LEVEL 8.7 MG/DL (8.5-10.1); CARBON DIOXIDE LEVEL 28 MMOL/L (20-31); CHLORIDE LEVEL 102 MMOL/L (98-107); CREATININE FOR GFR 0.73 MG/DL (0.55-1.30); GLOMERULAR FILTRATION RATE > 60.0 (>51); GLUCOSE, FASTING 131 MG/DL (60-100); POTASSIUM SERUM 3.5 MMOL/L (3.5-5.1); SODIUM LEVEL 136 MMOL/L (136-145)
[2024-02-19 16:30] LABS: THYROID STIMULATING HORMONE 0.654 uIU/ML (0.55-4.78)
[2024-02-19] MEDS: KETOROLAC 30 MG/ML 1ML VIAL IV ONE (17:34)
[2024-02-19] MEDS: ACETAMINOPHEN 500 MG TAB PO ONE (17:49)
[2024-02-19 18:12] LABS: INR 1.27; PARTIAL THROMBOPLASTIN TIME 30.3 SECONDS (24.8-34.2); PROTHROMBIN TIME 15.5 SECONDS (12.5-14.5)
[2024-02-19] MEDS ORDERED: ISOVUE-370 76% 100ML VIAL As Ordered ONE (18:22)
[2024-02-19 18:48] LABS: CK-MB VALUE MASS < 1.0 NG/ML (<3.6)
[2024-02-19 18:50] LABS: CPK CREATINE PHOSPHOKINASE 37 U/L (34-145)
[2024-02-19] MEDS: cefTRIAXone SOD 1 GM in D5W MINI-BAG PLUS 50 ML IV ONE (19:28)
[2024-02-19] MEDS ORDERED: ONDA-282 PO (19:54)
[2024-02-19] MEDS ORDERED: SULF1TAB23 PO (19:54)
[2024-02-19 20:00] VITALS: BP 113/58; TEMP 98.9; O2SAT 97
[2024-02-23 17:02] LABS: LYME TOTAL ANTIBODY CIA <= 0.90 Index (<=0.90)
== END 2024-02-19 20:18 | disposition home or self-care (01) ==
LOC: M ED 14:09
DX: N10 Acute pyelonephritis (principal); R53.81 Other malaise; R91.1 Solitary pulmonary nodule; Z90.89 Acquired absence of other organs; Z91.030 Bee allergy status; Z88.5 Allergy status to narcotic agent; Z79.2 Long term (current) use of antibiotics; Z79.899 Other long term (current) drug therapy
CPT/HCPCS: 71046; 71275; 80048; 81001; 82550; 82553; 83605; 84439; 84443; 84484; 85025; 85610; 85652; 85730; 86140; 86618; 87040; 87077; 87088; 87186; 87486; 87581; 87633; 87798; 93005; 93041; 94760; 96365; 96375; 99285; J0696; J1885; Q9967

== ENCOUNTER → 2024-03-26 | Outpatient (CLI) | payer OTHER ==
[~2024-03-26] MED LIST changes: +ONDA-282 PO; +SULF1TAB23 PO
[2024-03-26 10:50] LABS: BASO # 0.1 10^3/uL (0.0-0.2); BASO % 0.7 % (0.0-1.0); EOS # 0.1 10^3/uL (0.0-0.5); HEMATOCRIT 45.3 % (36.0-47.0); HEMOGLOBIN 15.1 g/dl (12.0-15.5); LYMPH # 1.2 10^3/uL (1.5-5.0); LYMPH % 16.9 % (24.0-44.0); MEAN CORPUSCULAR HEMOGLOBIN 28.8 pg (27.0-33.0); MEAN CORPUSCULAR HGB CONC 33.3 g/dl (32.0-36.5); MEAN CORPUSCULAR VOLUME 86.5 fl (80.0-96.0); MONO # 0.6 10^3/uL (0.0-0.8); MONO % 8.2 % (2.0-8.0); NEUTROPHILS % 72.8 % (36.0-66.0); PLATELET COUNT, AUTOMATED 215 10^3/uL (150-450); RED BLOOD COUNT 5.24 10^6/uL (4.00-5.40); WHITE BLOOD COUNT 6.8 10^3/uL (4.0-10.0)
[2024-03-26 11:16] LABS: BLOOD UREA NITROGEN 13 MG/DL (9-23); CALCIUM LEVEL 9.4 MG/DL (8.5-10.1); CARBON DIOXIDE LEVEL 29 MMOL/L (20-31); CHLORIDE LEVEL 105 MMOL/L (98-107); CREATININE FOR GFR 0.58 MG/DL (0.55-1.30); GLOMERULAR FILTRATION RATE > 60.0 (>51); GLUCOSE, FASTING 113 MG/DL (60-100); POTASSIUM SERUM 4.3 MMOL/L (3.5-5.1); SODIUM LEVEL 139 MMOL/L (136-145)
== END ==
LOC: M LAB 09:18
PROVIDERS: ATTEND Surgery
DX: C73 Malignant neoplasm of thyroid gland (principal)

== ENCOUNTER → 2024-08-04 | Outpatient (REF) | payer OTHER ==
[~2024-08-04] MED LIST changes: -MULT200T7 PO; +MULT200T9 PO
[2024-08-06 12:07] LABS: THYROGLOBULIN QUANTITATIVE 1.8 ng/mL (2.8-40.9)
== END ==
LOC: M LAB REF 11:18
PROVIDERS: ATTEND Surgery
DX: C73 Malignant neoplasm of thyroid gland (principal)

== ENCOUNTER → 2024-08-07 | Outpatient (CLI) | payer OTHER ==
[2024-08-07 10:29] LABS: BASO # 0.1 10^3/uL (0.0-0.2); BASO % 0.8 % (0.0-1.0); EOS # 0.1 10^3/uL (0.0-0.5); EOS % 0.7 % (0.0-3.0); HEMOGLOBIN 16.4 g/dl (12.0-15.5); LYMPH # 1.2 10^3/uL (1.5-5.0); LYMPH % 16.5 % (24.0-44.0); MEAN CORPUSCULAR HEMOGLOBIN 28.2 pg (27.0-33.0); MEAN CORPUSCULAR HGB CONC 33.5 g/dl (32.0-36.5); MEAN CORPUSCULAR VOLUME 84.3 fl (80.0-96.0); MONO # 0.6 10^3/uL (0.0-0.8); MONO % 7.6 % (2.0-8.0); NEUTROPHILS # 5.6 10^3/uL (1.5-8.5); NEUTROPHILS % 74.1 % (36.0-66.0); PLATELET COUNT, AUTOMATED 218 10^3/uL (150-450); RED BLOOD COUNT 5.81 10^6/uL (4.00-5.40); WHITE BLOOD COUNT 7.5 10^3/uL (4.0-10.0)
[2024-08-07 10:46] LABS: HEMOGLOBIN A1c 5.4 % (4.0-6.0)
[2024-08-07 10:57] LABS: ALBUMIN 3.6 G/DL (3.2-5.2); ALKALINE PHOSPHATASE 104 U/L (35-104); ALT/SGPT 55 U/L (7.0-40); AST/SGOT 34 U/L (<34); BILIRUBIN,TOTAL 0.4 MG/DL (0.3-1.2); BLOOD UREA NITROGEN 15 MG/DL (9-23); CALCIUM LEVEL 9.5 MG/DL (8.5-10.1); CARBON DIOXIDE LEVEL 28 MMOL/L (20-31); CHLORIDE LEVEL 103 MMOL/L (98-107); CHOLESTEROL LEVEL 183 MG/DL (<200); CHOLESTEROL RISK RATIO 4.21 (<5); CREATININE FOR GFR 0.56 MG/DL (0.55-1.30); GLOMERULAR FILTRATION RATE > 60.0 (>51); GLUCOSE, FASTING 104 MG/DL (60-100); HDL CHOLESTEROL 43.4 MG/DL (>40); LDL CHOLESTEROL 108.4 MG/DL (<100); NON-HDL-C 139.6 MG/DL; POTASSIUM SERUM 4.5 MMOL/L (3.5-5.1); SODIUM LEVEL 138 MMOL/L (136-145); THYROID STIMULATING HORMONE 0.196 uIU/ML (0.55-4.78); TRIGLYCERIDES LEVEL 156 MG/DL (<150)
== END ==
LOC: M LAB 09:18
PROVIDERS: ATTEND Family Medicine
DX: C73 Malignant neoplasm of thyroid gland (principal); E89.0 Postprocedural hypothyroidism

== ENCOUNTER → 2024-09-01 | Outpatient (CLI) | payer OTHER ==
[~2024-09-01] MED LIST changes: +LEVO175T2
[2024-09-01 12:56] LABS: FREE T4 1.65 NG/DL (0.89-1.76)
[2024-09-01 12:57] LABS: THYROID STIMULATING HORMONE 0.107 uIU/ML (0.55-4.78)
[2024-09-02 14:17] LABS: THYROGLOBULIN QUANTITATIVE 1.3 ng/mL (2.8-40.9)
== END ==
LOC: M LAB 11:45
PROVIDERS: ATTEND Nurse Practitioner Family
DX: E89.0 Postprocedural hypothyroidism (principal); C73 Malignant neoplasm of thyroid gland

== ENCOUNTER → 2024-10-05 | Outpatient (CLI) | payer OTHER ==
[~2024-10-05] MED LIST changes: +ISOVUE-370 76% 100ML VIAL As Ordered ONE
== END ==
LOC: M RAD 10:01
PROVIDERS: ATTEND Specialist
DX: C18.9 Malignant neoplasm of colon, unspecified (principal)

== ENCOUNTER 2024-10-23 10:32 | Inpatient (IN) | payer OTHER ==
[~2024-10-23] VITALS: Ht 162.6 cm; Wt 116.1 kg
[~2024-10-23 10:32] MED LIST changes: -ISOVUE-370 76% 100ML VIAL As Ordered ONE; -LEVO175T2; +LEVO175T2 PO
[2024-10-23 11:03] LABS: BASO % 0.2 % (0.0-1.0); HEMATOCRIT 49.7 % (36.0-47.0); HEMOGLOBIN 16.6 g/dl (12.0-15.5); LYMPH # 0.7 10^3/uL (1.5-5.0); LYMPH % 5.1 % (24.0-44.0); MEAN CORPUSCULAR HGB CONC 33.4 g/dl (32.0-36.5); MEAN CORPUSCULAR VOLUME 80.9 fl (80.0-96.0); MONO # 0.3 10^3/uL (0.0-0.8); MONO % 2.6 % (2.0-8.0); NEUTROPHILS # 11.9 10^3/uL (1.5-8.5); NEUTROPHILS % 91.7 % (36.0-66.0); PLATELET COUNT, AUTOMATED 351 10^3/uL (150-450); RED BLOOD COUNT 6.14 10^6/uL (4.00-5.40); WHITE BLOOD COUNT 12.9 10^3/uL (4.0-10.0)
[2024-10-23 11:26] LABS: KETONE, URINE AUTO RFX 1+ mg/dL (NEGATIVE); LEUKOCYTE ESTERASE UR AUTO RFX NEGATIVE (NEGATIVE); MUCUS, URINE RFX SMALL (NEGATIVE); NITRITE, URINE AUTO RFX NEGATIVE (NEGATIVE); RBC, URINE AUTO RFX 8 /HPF (0-3); SQUAM EPITHELIAL CELL UR AURFX 8 /HPF (0-6); WBC, URINE AUTO RFX 1 /HPF (0-3)
[2024-10-23 11:33] LABS: BLOOD UREA NITROGEN 17 MG/DL (9-23); CALCIUM LEVEL 9.8 MG/DL (8.5-10.1); CARBON DIOXIDE LEVEL 27 MMOL/L (20-31); CHLORIDE LEVEL 100 MMOL/L (98-107); CREATININE FOR GFR 0.59 MG/DL (0.55-1.30); GLOMERULAR FILTRATION RATE > 60.0 (>51); GLUCOSE, FASTING 147 MG/DL (60-100); SODIUM LEVEL 138 MMOL/L (136-145)
[2024-10-23 11:55] LABS: THYROID STIMULATING HORMONE 0.027 uIU/ML (0.55-4.78)
[2024-10-23] MEDS: NS (Normal Saline) 0.9% 1,000 ML IV SCH (12:35)
[2024-10-23] MEDS: ONDANSETRON 4MG 2ML VIAL IV ONE (12:36)
[2024-10-23] MEDS: KETOROLAC 30 MG/ML 1ML VIAL IV ONE (12:36)
[2024-10-23 13:05] LABS: INR 0.99; PROTHROMBIN TIME 13.4 SECONDS (12.5-14.5)
[2024-10-23] MEDS: HYDROMORPHONE HCL 0.5 MG/ 0.5 ML SYRINGE IV ONE (13:47)
[2024-10-23] MEDS: LORazepam 2 MG/ML 1ML VIAL IV STA (13:47)
[2024-10-23] MEDS ORDERED: HOME MED LIST COMPLETE! XX SCH (14:20)
[2024-10-23] MEDS: NS (Normal Saline) 0.9% 1,000 ML IV ONE (15:05)
[2024-10-23] MEDS ORDERED: ONDANSETRON 4MG 2ML VIAL IV PRN ×2 (15:05→18:30)
[2024-10-23] MEDS: PANTOPRAZOLE 40MG VIAL IV SCH (15:17)
[2024-10-23 15:48] LABS: FREE T4 1.74 NG/DL (0.89-1.76)
[2024-10-23] MEDS ORDERED: fentaNYL 250 MCG/5 ML INJECTION As Ordered ONE (15:54)
[2024-10-23] MEDS ORDERED: MIDAZOLAM INJ 2MG/2ML VIAL As Ordered ONE (15:55)
[2024-10-23] MEDS ORDERED: propofoL 200 MG/20 ML VIAL As Ordered ONE (15:55)
[2024-10-23] MEDS ORDERED: ONDANSETRON 4MG 2ML VIAL As Ordered ONE (15:55)
[2024-10-23] MEDS ORDERED: ROCURONIUM BROMIDE 50MG/5ML VIAL As Ordered ONE (15:55)
[2024-10-23] MEDS ORDERED: SUGAMMADEX SODIUM 500 MG/5 ML VIAL (BRIDION) As Ordered ONE (15:55)
[2024-10-23] MEDS ORDERED: KETOROLAC 60MG 2ML VIAL As Ordered ONE (15:55)
[2024-10-23] MEDS ORDERED: LIDOCAINE 2% 100MG/5ML SDV (FOR ANES.) As Ordered ONE (15:55)
[2024-10-23] MEDS ORDERED: ACETAMINOPHEN 1000MG/100ML IV BAG As Ordered ONE (15:56)
[2024-10-23 16:01] VITALS: BP 142/92; TEMP 98.1; O2SAT 93
[2024-10-23] MEDS: ceFAZolin SODIUM 3 GM VIAL As Ordered ONE (16:20)
[2024-10-23] MEDS ORDERED: PHENYLephrine 500MCG 5ML (100MCG/ML) SYRINGE As Ordered ONE (17:28)
[2024-10-23] MEDS ORDERED: INDOCYANINE GREEN 25MG VIAL (IC-GREEN) As Ordered ONE (17:38)
[2024-10-23] MEDS: INDOCYANINE GREEN 25MG VIAL (IC-GREEN) IV ONE (17:40)
[2024-10-23] MEDS ORDERED: fentaNYL 100 MCG/2 ML INJECTION IV PRN (18:30)
[2024-10-23] MEDS ORDERED: oxyCODONE 5MG TAB PO PRN (18:30)
[2024-10-23] MEDS ORDERED: MORPHINE 2 MG/ML 1ML VIAL IV PRN (18:30)
[2024-10-23] MEDS ORDERED: PERCOCET 5MG/325MG TAB PO PRN (19:05)
[2024-10-23 19:50] VITALS: BP 162/96; TEMP 97.9; O2SAT 99
[2024-10-23] MEDS: MORPHINE 2 MG/ML 1ML VIAL IV PRN (19:55)
[2024-10-23 20:32] VITALS: BP 128/72; TEMP 97.5; O2SAT 94
[2024-10-23 21:13] VITALS: BP 127/72; TEMP 97.2; O2SAT 93
[2024-10-23 22:30] VITALS: BP 130/77; TEMP 97.2; O2SAT 96
[2024-10-23 23:39] VITALS: BP 125/73; TEMP 97.9; O2SAT 93
[2024-10-24] VITALS (7 sets, daily range): BP systolic 128–138; BP diastolic 69–78; TEMP 97.3–97.9; O2SAT 93–96
[2024-10-24 06:19] LABS: HEMATOCRIT 43.3 % (36.0-47.0); MEAN CORPUSCULAR HEMOGLOBIN 27.2 pg (27.0-33.0); MEAN CORPUSCULAR HGB CONC 32.3 g/dl (32.0-36.5); MEAN CORPUSCULAR VOLUME 84.2 fl (80.0-96.0); PLATELET COUNT, AUTOMATED 317 10^3/uL (150-450); RED BLOOD COUNT 5.14 10^6/uL (4.00-5.40)
[2024-10-24 06:32] LABS: BLOOD UREA NITROGEN 18 MG/DL (9-23); CALCIUM LEVEL 8.8 MG/DL (8.5-10.1); CARBON DIOXIDE LEVEL 26 MMOL/L (20-31); CHLORIDE LEVEL 107 MMOL/L (98-107); CREATININE FOR GFR 0.67 MG/DL (0.55-1.30); GLOMERULAR FILTRATION RATE > 60.0 (>51); GLUCOSE, FASTING 115 MG/DL (60-100); POTASSIUM SERUM 4.2 MMOL/L (3.5-5.1); SODIUM LEVEL 143 MMOL/L (136-145)
[2024-10-24] MEDS: LEVOTHYROXINE 150MCG TABLET (0.15MG) PO SCH (09:33)
[2024-10-24] MEDS: ENOXAPARIN 40MG/0.4ML SYRINGE (J1650 PER 10MG) SC SCH (09:57)
[2024-10-25 04:08] VITALS: BP 140/80; TEMP 98.1; O2SAT 97
[2024-10-25 06:22] LABS: BASO % 0.9 % (0.0-1.0); EOS % 0.9 % (0.0-3.0); HEMATOCRIT 36.9 % (36.0-47.0); HEMOGLOBIN 12.3 g/dl (12.0-15.5); LYMPH # 1.2 10^3/uL (1.5-5.0); LYMPH % 27.4 % (24.0-44.0); MEAN CORPUSCULAR HGB CONC 33.3 g/dl (32.0-36.5); MEAN CORPUSCULAR VOLUME 84.1 fl (80.0-96.0); MONO # 0.5 10^3/uL (0.0-0.8); MONO % 11.9 % (2.0-8.0); NEUTROPHILS # 2.6 10^3/uL (1.5-8.5); NEUTROPHILS % 58.7 % (36.0-66.0); PLATELET COUNT, AUTOMATED 195 10^3/uL (150-450); RED BLOOD COUNT 4.39 10^6/uL (4.00-5.40); WHITE BLOOD COUNT 4.4 10^3/uL (4.0-10.0)
[2024-10-25 06:45] LABS: BLOOD UREA NITROGEN 10 MG/DL (9-23); CARBON DIOXIDE LEVEL 29 MMOL/L (20-31); CHLORIDE LEVEL 106 MMOL/L (98-107); CREATININE FOR GFR 0.54 MG/DL (0.55-1.30); GLOMERULAR FILTRATION RATE > 60.0 (>51); GLUCOSE, FASTING 89 MG/DL (60-100); POTASSIUM SERUM 3.4 MMOL/L (3.5-5.1); SODIUM LEVEL 142 MMOL/L (136-145)
[2024-10-25] MEDS: KCL 10MEQ/100ML SWI (KRUN) 10 MEQ in IV 1 EA IV SCH (07:45)
[2024-10-25 11:33] VITALS: BP 142/80; TEMP 97.9; O2SAT 97
[2024-10-25 20:24] VITALS: BP 149/81; TEMP 97.7; O2SAT 97
[2024-10-26 04:10] VITALS: BP 137/76; TEMP 97.5; O2SAT 97
[2024-10-26 05:54] LABS: BLOOD UREA NITROGEN 8 MG/DL (9-23); CALCIUM LEVEL 8.4 MG/DL (8.5-10.1); CARBON DIOXIDE LEVEL 28 MMOL/L (20-31); CHLORIDE LEVEL 105 MMOL/L (98-107); CREATININE FOR GFR 0.55 MG/DL (0.55-1.30); GLOMERULAR FILTRATION RATE > 60.0 (>51); GLUCOSE, FASTING 107 MG/DL (60-100); POTASSIUM SERUM 3.4 MMOL/L (3.5-5.1); SODIUM LEVEL 141 MMOL/L (136-145)
[2024-10-26] MEDS: POTASSIUM CHLORIDE 10MEQ SR TABLET PO ONE (07:59)
[2024-10-26] MEDS: KCL 10MEQ/100ML SWI (KRUN) 10 MEQ in IV 1 EA IV SCH (08:00)
[2024-10-26] MEDS ORDERED: POTA-151 PO (09:33)
[2024-10-26] MEDS ORDERED: LEVO150T7 PO (09:33)
== END 2024-10-26 10:56 | disposition home or self-care (01) | DRG 355 ==
LOC: M ED 10:32 → M ED INP 15:02 → M MSPAV 16:01
PROVIDERS: ADMIT Internal Medicine; ATTEND Internal Medicine
PROC: 8E0W4CZ Robotic Assisted Procedure of Trunk Region, Percutaneous Endoscopic Approach (ICD-10-PCS; 2024-10-23)
PROC: 0WQF4ZZ Repair Abdominal Wall, Percutaneous Endoscopic Approach (ICD-10-PCS; principal; 2024-10-23 15:30)
DX: K42.0 Umbilical hernia with obstruction, without gangrene (principal); E87.6 Hypokalemia; E66.01 Morbid (severe) obesity due to excess calories; Z85.038 Personal history of other malignant neoplasm of large intestine; Z85.850 Personal history of malignant neoplasm of thyroid; E89.0 Postprocedural hypothyroidism; D72.829 Elevated white blood cell count, unspecified; Z88.5 Allergy status to narcotic agent; Z79.890 Hormone replacement therapy

== ENCOUNTER → 2024-11-03 | Outpatient (REF) | payer OTHER ==
[~2024-11-03] MED LIST changes: +LEVO150T7 PO; +POTA-151 PO
== END ==
LOC: M SFHCADAM 10:26
PROVIDERS: ATTEND Family Medicine
DX: E89.0 Postprocedural hypothyroidism (principal); Z53.9 Procedure and treatment not carried out, unspecified reason

== ENCOUNTER → 2024-11-27 | Outpatient (CLI) | payer OTHER ==
[2024-11-27 12:35] LABS: FREE T4 1.87 NG/DL (0.89-1.76); THYROID STIMULATING HORMONE 0.01 uIU/ML (0.55-4.78)
== END ==
LOC: M LAB 11:09
PROVIDERS: ATTEND Family Medicine
DX: E89.0 Postprocedural hypothyroidism (principal)

== ENCOUNTER → 2024-12-01 | Outpatient (CLI) | payer OTHER | LOC: M ADAMS 11:27 | PROVIDERS: ATTEND Family Medicine | DX: R06.02 Shortness of breath (principal) ==

== ENCOUNTER → 2024-12-25 | Outpatient (CLI) | payer OTHER ==
[2024-12-28 16:03] LABS: THRYOGLOBULIN ANTIBODIES (ATA) < 1 IU/mL (< or = 1); THYROGLOBULIN QUANTITATIVE 219.8 ng/mL (2.8-40.9)
== END ==
LOC: M LAB 12:49
PROVIDERS: ATTEND Internal Medicine Endocrinology, Diabetes & Metabolism
DX: C73 Malignant neoplasm of thyroid gland (principal)

== ENCOUNTER → 2025-04-19 | Outpatient (CLI) | payer OTHER ==
[2025-04-19 13:28] LABS: FREE T4 1.52 NG/DL (0.89-1.76)
[2025-04-21 08:37] LABS: THRYOGLOBULIN ANTIBODIES (ATA) 2 IU/mL (< or = 1); THYROGLOBULIN QUANTITATIVE < 0.1 ng/mL (2.8-40.9)
== END ==
LOC: M LAB 12:22
PROVIDERS: ATTEND Nurse Practitioner Family
DX: E89.0 Postprocedural hypothyroidism (principal); C73 Malignant neoplasm of thyroid gland

== ENCOUNTER → 2025-07-19 | Outpatient (CLI) | payer OTHER ==
[~2025-07-19] MED LIST changes: +SULF-7 PO; -SULF1TAB23 PO
[2025-07-19 13:24] LABS: FREE T4 1.58 NG/DL (0.89-1.76)
== END ==
LOC: M LAB 12:33
PROVIDERS: ATTEND Nurse Practitioner Family
DX: E89.0 Postprocedural hypothyroidism (principal)